=== PATIENT | male | born 1985 | race Caucasian/White ===

== ENCOUNTER 2016-12-05 08:34 | Emergency (ER) | payer MEDICAID ==
[~2016-12-05] VITALS: Ht 182.9 cm; Wt 88.5 kg
[2016-12-05 08:38] VITALS: BP 133/74
--- NOTE | 2016-12-05 08:58 | NUR ---
Patient taken to bed 08 via wheelchair.
--- NOTE | 2016-12-05 09:02 | NUR ---
PATIENT BIB FAMILY W/ C/O EPIGASTRIC PAIN W/ N/V .SKIN IS PINK/WARM/DRY; AAOX4 WITH EVEN AND STEADY GAIT; LUNGS CLEAR BL; HR EVEN AND REGULAR; PT DENIES ANY FEVER, CP, SOB, OR COUGH AT THIS TIME; PATIENT STATES PAIN OF 10/10 AT THIS TIME; PATIENT POSITIONED FOR COMFORT; HOB ELEVATED; BEDRAILS UP X2;ALL MONITORS IN PLACED; BED DOWN. ER MD MADE AWARE OF PT STATUS.
--- NOTE | 2016-12-05 09:20 | NUR ---
DR LEAL AT BEDSIDE.
[2016-12-05] MEDS ORDERED: ALUMINUM HYD/MAG/SIMETHICONE 30 ML UDC PO ONE (09:30)
[2016-12-05] MEDS ORDERED: FAMOTIDINE 20 MG TAB PO ONE (09:30)
[2016-12-05] MEDS ORDERED: ONDANSETRON 4 MG ODT PO ONE (09:30)
[2016-12-05] MEDS ORDERED: LIDOCAINE VISCOUS 2% 20 ML UDC PO ONE (09:30)
[2016-12-05 10:11] VITALS: BP 121/68
--- NOTE | 2016-12-05 10:11 | NUR ---
Patient discharged with v/s stable. Written and verbal after care instructions given and explained. Patient alert, oriented and verbalized understanding of instructions. Ambulatory with steady gait. All questions addressed prior to discharge. ID band removed. Patient advised to follow up with PMD. Rx of PEPCID AND ZOFRAN given. Patient educated on indication of medication including possible reaction and side effects. Opportunity to ask questions provided and answered.
== END 2016-12-05 10:11 | disposition home or self-care (01) ==
LOC: MED 08:34 → EDBD 08:34 → MED 10:11
DX: K29.70 Gastritis, unspecified, without bleeding (principal); F11.10 Opioid abuse, uncomplicated
CPT/HCPCS: 99284; S0119